=== PATIENT | male | born 1965 | race Caucasian/White ===

== ENCOUNTER 2021-04-29 17:48 | Emergency (ER) | payer OTHER ==
[~2021-04-29] VITALS: Ht 175.3 cm; Wt 79.4 kg
[2021-04-29 17:57] VITALS: BP_SYST 155
--- NOTE | 2021-04-29 18:02 | NUR ---
Patient to ER bed 04 to gown for evaluation. Side rails up.
--- NOTE | 2021-04-29 18:08 | NUR ---
First contact made with patient. Awake, alert and oriented x 3. Reporting "migraine" headache along with nausea, vomiting and sweating earlier today. Stated migraine medication has been ineffective and that antihypertensives have been "weaned" off per patient as he didn't feel they were needed. On secured entrance monitor; VSS. Awaiting Dr Albright evaluation. Will continue to monitor.
--- NOTE | 2021-04-29 18:14 | NUR ---
Dr Albright at bedside to evaluate patient
--- NOTE | 2021-04-29 18:20 | NUR ---
# 20 gauge angiocath placed to L AC. Use of asceptic technique. Opsite placed over site. Blood return noted. Blood for lab drawn from site. Flushed with 10 cc of normal saline. No evidence of infiltration noted. Patient tolerated well.
[2021-04-29] MEDS: PROCHLORPERAZINE EDISYLATE 10 MG/2 ML VIAL IVP ONE (18:27)
[2021-04-29] MEDS: NACL 0.9% 1,000 ML IV ONE (18:27)
[2021-04-29] MEDS: KETOROLAC TROMETHAMINE 30 MG VIAL IVP ONE (18:28)
[2021-04-29 18:36] LABS: BASOPHILS % (AUTO) 0.2 % (0.0-2.0); EOSINOPHILS % (AUTO) 0.3 % (0.0-4.0); HEMATOCRIT 46.6 % (36-54); HEMOGLOBIN 15.9 g/dL (14.0-18.0); LYMPHOCYTES # (AUTO) 1.2 K/uL (1.0-5.5); LYMPHOCYTES % (AUTO) 15.4 % (20.5-51.5); MEAN CORPUSCULAR HEMOGLOBIN 30 pg (27-31); MEAN CORPUSCULAR HGB CONC 34 % (32-36); MEAN CORPUSCULAR VOLUME 87 fL (79.0-98.0); MONOCYTES # (AUTO) 0.3 K/uL (0.0-1.0); NEUTROPHILS % (AUTO) 80.1 % (40.0-70.0); PLATELET COUNT (AUTO) 233 K/uL (130-430); RED BLOOD CELL COUNT(AUTO) 5.38 MIL/uL (4.2-6.2); RED CELL DISTRIBUTION WIDTH 13.5 % (9.0-15.0); WHITE BLOOD COUNT (AUTO) 7.5 K/uL (4.8-10.8)
[2021-04-29 18:49] LABS: CALCIUM 9.4 mg/dL (8.4-11.0); CREATININE 1.17 mg/dL (0.55-1.30); POTASSIUM 3.6 mmol/L (3.5-5.1)
[2021-04-29 18:55] LABS: ALBUMIN 4.3 g/dL (3.4-4.8); TOTAL BILIRUBIN 0.6 mg/dL (0.0-1.0)
--- NOTE | 2021-04-29 19:09 | NUR ---
Report given to Kaity SANDRA to assume care
--- NOTE | 2021-04-29 19:35 | NUR ---
Pt report received. Pt AAOx4, denies c/o pain or discomfort, no needs verbalized at this time. Family member at bedside.
--- NOTE | 2021-04-29 20:00 | NUR ---
Dr. Albright at bedside.
[2021-04-29 20:10] VITALS: BP_SYST 147
== END 2021-04-29 20:10 | disposition home or self-care (01) ==
LOC: SED 17:48
DX: G43.909 Migraine, unspecified, not intractable, without status migrainosus (principal); Z20.822 Contact with and (suspected) exposure to COVID-19
CPT/HCPCS: 36415; 80053; 85025; 87426; 96361; 96374; 96375; 99284; J0780; J1885; J7030

== ENCOUNTER 2021-09-27 15:49 | Inpatient (IN) | payer OTHER ==
[~2021-09-27] VITALS: Ht 172.7 cm; Wt 81.6 kg
[2021-09-27 15:49] VITALS: BP_SYST 151
--- NOTE | 2021-09-27 15:50 | NUR ---
DR KO AT BEDSIDE FOR EXAM.
[2021-09-27 16:50] LABS: ANION GAP 6 (5-15); CALCIUM 8.2 mg/dL (8.4-11.0); CHLORIDE 104 mmol/L (98-107); CREATININE 1.19 mg/dL (0.55-1.30); GLUCOSE 123 mg/dL (70-99); POTASSIUM 3.3 mmol/L (3.5-5.1); SODIUM SERUM 137 mmol/L (136-145); UREA NITROGEN, BLOOD 18 mg/dL (8-21)
[2021-09-27 16:54] LABS: BASOPHILS % (AUTO) 0.5 % (0.0-2.0); EOSINOPHILS # (AUTO) 0.1 K/uL (0.0-0.4); EOSINOPHILS % (AUTO) 2.5 % (0.0-4.0); HEMATOCRIT 41.3 % (36-54); HEMOGLOBIN 14.2 g/dL (14.0-18.0); LYMPHOCYTES # (AUTO) 1.4 K/uL (1.0-5.5); MEAN CORPUSCULAR HEMOGLOBIN 30 pg (27-31); MEAN CORPUSCULAR HGB CONC 34 % (32-36); MEAN CORPUSCULAR VOLUME 87 fL (79.0-98.0); MONOCYTES # (AUTO) 0.4 K/uL (0.0-1.0); MONOCYTES % (AUTO) 10.9 % (1.7-9.3); NEUTROPHILS % (AUTO) 51.1 % (40.0-70.0); PLATELET COUNT (AUTO) 206 K/uL (130-430); RED BLOOD CELL COUNT(AUTO) 4.75 MIL/uL (4.2-6.2); RED CELL DISTRIBUTION WIDTH 13.5 % (9.0-15.0)
[2021-09-27 16:59] LABS: GFR AFRICAN AMERICAN 81 mL/min (>90)
[2021-09-27 17:05] LABS: ALCOHOL, BLOOD < 3 mg/dL (<10)
[2021-09-27 17:11] LABS: ALANINE AMINOTRANSFERASE 28 U/L (12-78); ALBUMIN 3.7 g/dL (3.4-4.8); ASPARTATE AMINOTRANSFERASE 14 U/L (10-37); THYROID STIMULATING HORMONE 0.01 uIu/mL (0.36-3.74); TOTAL BILIRUBIN 0.1 mg/dL (0.0-1.0)
[2021-09-27 17:13] LABS: ACETAMINOPHEN < 1 ug/mL (1-30)
--- NOTE | 2021-09-27 17:15 | NUR ---
Admit bed requested Patient will be admitted to care of Dr. Gilmore. Admitted to [facility] unit. Diagnosis Sub acute CVA Inpatient (Yes or No) Y Observation (Yes or No) N Orientation concerns or request close to nursing station (Yes or No) N Covid Status PEND On vent or bipap N Isolation requirements N Needs a sitter N From Home (Yes or if No enter name of facility) Home Requires Dialysis (Yes or No) N Med Rec Completed (Yes of No) Y
[2021-09-27] MEDS ORDERED: POTASSIUM CHLORIDE 20 MEQ TAB.PRT.SR PO ONE (17:30)
--- NOTE | 2021-09-27 17:52 | NUR ---
a/ox4 vss , talking on cellphone, phone at bedside, appears to be in no acute distress noted at this time.
[2021-09-27] MEDS ORDERED: ONDANSETRON HCL 4 MG/2 ML VIAL IVP PRN ×2 (18:00→21:45)
[2021-09-27] MEDS ORDERED: METOCLOPRAMIDE HCL 10 MG/2 ML VIAL IVP PRN (18:00)
--- NOTE | 2021-09-27 19:14 | NUR ---
155Aileen calvillo at bedside pt pending orders
--- NOTE | 2021-09-27 20:15 | NUR ---
Patient will be admitted to care of DR FERRIS. Admitted to unit. Will go to room . Belongings list completed. Complete and up to date summary report printed. SBAR report to be given at bedside with opportunity for questions.
--- NOTE | 2021-09-27 20:20 | NUR ---
ADMISSION NOTE Received patient from ER via gurney. Patient admitted with diagnosis of Sub Acute CVA. Patient is awake, alert, oriented X 4. Patient oriented to hospital room, call light, toileting, pain management and safety-teach back done. Patient informed that Alonso SANDRA will be nurse and that their room number is 110A. Personal belongings checked and Belongings List documented. Call light within reach.
[2021-09-27 21:44] VITALS: BP_SYST 127
[2021-09-27] MEDS ORDERED: ACETAMINOPHEN 325 MG TABLET PO PRN (21:45)
[2021-09-27] MEDS ORDERED: HYDROcodone/ACETAMIN 5-325 MG TAB (NORCO/ VICODIN) PO PRN (21:45)
[2021-09-27] MEDS ORDERED: NALOXONE HCL 0.4 MG/ML AMP (NARCAN) IVP PRN ×2 (21:45)
[2021-09-27] MEDS ORDERED: LORazepam 2 MG/ML VIAL IVP PRN (21:45)
[2021-09-27] MEDS ORDERED: HYDROcodone/ACETAMIN 10-325 MG TAB PO PRN (21:45)
[2021-09-27] MEDS ORDERED: NORMAL SALINE 5 ML DISP.SYRIN IVF SCH (22:00)
[2021-09-27] MEDS: NORMAL SALINE 5 ML DISP.SYRIN IVF SCH (22:00)
[2021-09-28 04:00] VITALS: BP_SYST 131
[2021-09-28] MEDS: NORMAL SALINE 5 ML DISP.SYRIN IVF SCH ×2 (06:14→14:00)
--- NOTE | 2021-09-28 06:44 | NUR ---
CLOSING NOTE: Patient is in bed resting no s/s of distress at this time. Chest rise is even and unlabored and patient is able to communicate needs. Safety protocols are in place and patient has call light within reach. All current shift needs have been met. Will differ further care to AM shift for continuity of care.
[2021-09-28 06:46] LABS: BASOPHILS % (AUTO) 0.6 % (0.0-2.0); EOSINOPHILS # (AUTO) 0.2 K/uL (0.0-0.4); EOSINOPHILS % (AUTO) 4.2 % (0.0-4.0); HEMOGLOBIN 14.4 g/dL (14.0-18.0); LYMPHOCYTES # (AUTO) 1.3 K/uL (1.0-5.5); LYMPHOCYTES % (AUTO) 32.4 % (20.5-51.5); MEAN CORPUSCULAR HEMOGLOBIN 30 pg (27-31); MEAN CORPUSCULAR HGB CONC 34 % (32-36); MEAN CORPUSCULAR VOLUME 87 fL (79.0-98.0); MONOCYTES # (AUTO) 0.5 K/uL (0.0-1.0); MONOCYTES % (AUTO) 11.6 % (1.7-9.3); NEUTROPHILS % (AUTO) 51.2 % (40.0-70.0); PLATELET COUNT (AUTO) 222 K/uL (130-430); RED BLOOD CELL COUNT(AUTO) 4.83 MIL/uL (4.2-6.2); RED CELL DISTRIBUTION WIDTH 13.5 % (9.0-15.0)
[2021-09-28 07:02] LABS: ALBUMIN 3.6 g/dL (3.4-4.8); CALCIUM 8.5 mg/dL (8.4-11.0); CREATININE 1.15 mg/dL (0.55-1.30); PHOSPHORUS 3.7 mg/dL (2.7-4.5); POTASSIUM 3.7 mmol/L (3.5-5.1); TOTAL BILIRUBIN 0.2 mg/dL (0.0-1.0)
[2021-09-28] MEDS ORDERED: ASPIRIN 325 MG TABLET (ECOTRIN) PO ONE (10:15)
[2021-09-28] MEDS ORDERED: ATORVASTATIN 20 MG TABLET PO ONE (10:15)
--- NOTE | 2021-09-28 17:02 | NUR ---
CONSULT: CARDIO RULE OUT CVA DR NUNEZ, ROBIN PAGED
[2021-09-28 20:00] VITALS: BP_SYST 122
--- NOTE | 2021-09-28 20:28 | NUR ---
OPENING NOTE: Patient received from AM shift. Patient is AA&Ox4 able to make needs known, with family on bed side. Patient denies any other s/s of distress at this time. Chest rise is even and unlabored on RA. Active BS x4, denies pain with palpation, no distention is noted. Patient is currently stable and safety protocols are in place. Will assume care and monitor throughout the shift.
[2021-09-29] VITALS: BP_SYST 128
[2021-09-29] MEDS: NORMAL SALINE 5 ML DISP.SYRIN IVF SCH ×3 (00:13→14:12)
--- NOTE | 2021-09-29 07:45 | NUR ---
Patient is in bed resting no s/s distress at this time. Patient is able to communicate needs. All current shift needs have been met. Will differ current care to AM shift for continuity of care.
[2021-09-29] MEDS ORDERED: AMLO2.5T2 PO (07:56)
[2021-09-29] MEDS ORDERED: LOSA100T3 PO (07:56)
[2021-09-29] MEDS ORDERED: LEVO25TA7 PO (07:56)
[2021-09-29] MEDS ORDERED: IBUP800T54 PO (07:56)
[2021-09-29] MEDS ORDERED: RIZA10TA27 PO (07:56)
[2021-09-29 08:06] VITALS: BP_SYST 120
[2021-09-29] MEDS ORDERED: ASPIRIN 325 MG TABLET (ECOTRIN) PO SCH (09:00)
[2021-09-29] MEDS ORDERED: ATORVASTATIN 20 MG TABLET PO SCH (09:00)
--- NOTE | 2021-09-29 09:43 | NUR ---
NEUROLOGIST DR BERG WAS CALLED, RE: FAMILY WANTS TO TALK TO KNOW WHY PT IS CONFUSED. SPOKE TO RYAN.
[2021-09-29] MEDS ORDERED: RIZATRIPTAN BENZOATE 10 MG PO PRN (10:00)
[2021-09-29] MEDS ORDERED: LEVOTHYROXINE SODIUM 0.025 MG TABLET PO ONE (11:15)
[2021-09-29] MEDS ORDERED: amLODIPine BESYLATE 5 MG TABLET PO ONE (11:15)
[2021-09-29] MEDS ORDERED: LOSARTAN POTASSIUM 50 MG TABLET (COZAAR) PO ONE (11:15)
--- NOTE | 2021-09-29 14:45 | NUR ---
ATTENDING MD DR FERRIS WAS CALLED, RE: TO INFORM PT IS CLEARED BY NEURO, DR BERG -- PT MAY GO HOME. DISCHARGE ORDER FROM ATTENDING MD. SPOKE TO KATE.
--- NOTE | 2021-09-29 14:46 | NUR ---
Dietitian Recommendations * Continue cardiac diet * Document all PO intakes * Encourage increase PO intakes, specifically daily high-fiber food and water LP, RD Please refer to Nutrition Assessment for details. Addendum: 09/29/21 at [address] Amended: Links added.
[2021-09-29 18:51] VITALS: BP_SYST 135
[2021-09-30] MEDS ORDERED: LEVOTHYROXINE SODIUM 0.025 MG TABLET PO SCH (09:00)
[2021-09-30] MEDS ORDERED: LOSARTAN POTASSIUM 50 MG TABLET (COZAAR) PO SCH (09:00)
[2021-09-30] MEDS ORDERED: amLODIPine BESYLATE 5 MG TABLET PO SCH (09:00)
[2021-09-30] MEDS ORDERED: ASPI-989 PO (11:53)
[2021-09-30] MEDS ORDERED: LIP20 PO (11:53)
== END 2021-09-29 18:26 | disposition home or self-care (01) | DRG 66 ==
LOC: SED 15:49 → STU 17:53
PROVIDERS: ADMIT Internal Medicine Hospice and Palliative Medicine; ATTEND Internal Medicine Hospice and Palliative Medicine
DX: I63.81 Other cerebral infarction due to occlusion or stenosis of small artery (principal); E87.6 Hypokalemia; E03.9 Hypothyroidism, unspecified; E78.00 Pure hypercholesterolemia, unspecified; I10 Essential (primary) hypertension; Z20.822 Contact with and (suspected) exposure to COVID-19; E78.5 Hyperlipidemia, unspecified
CPT/HCPCS: 36415; 70450-TC; 70544; 70551; 76376; 80053; 80061; 83735; 84100; 84443; 85025; 86308-TC; 93306; 93880; 99285; G0378; G0480; G0481; G0482; J2310

== ENCOUNTER 2022-09-14 09:49 | Emergency (ER) | payer BC, OTHER ==
[~2022-09-14] VITALS: Ht 175.3 cm; Wt 83.9 kg
[~2022-09-14 09:49] MED LIST: AMLO2.5T2 PO; ASPI-989 PO; IBUP800T54 PO; LEVO25TA7 PO; LIP20 PO; LOSA100T4 PO; RIZA10TA27 PO
[2022-09-14 10:06] VITALS: BP_SYST 141
[2022-09-14] MEDS ORDERED: MORPHINE 4 MG INJ. 4 MG/ML VIAL IM ONE (10:30)
[2022-09-14] MEDS ORDERED: HYDR-3917 PO (10:40)
[2022-09-14] MEDS ORDERED: IBUP-1971 PO (10:40)
[2022-09-14 11:00] VITALS: BP_SYST 139
== END 2022-09-14 11:02 | disposition home or self-care (01) ==
LOC: SED 09:49
DX: M54.50 Low back pain, unspecified (principal); I10 Essential (primary) hypertension; Z79.899 Other long term (current) drug therapy
CPT/HCPCS: 99283; 96372; J2270